=== PATIENT | male | born 1965 | race Caucasian/White ===

== ENCOUNTER 2022-02-23 07:47 | Day surgery (SDC) | payer OTHER ==
[~2022-02-23] VITALS: Ht 177.8 cm; Wt 94.3 kg
[2022-02-23] MEDS ORDERED: DIPHENHYDRAMINE INJ 50 MG/ML VIAL ONE (10:27)
[2022-02-23] MEDS ORDERED: MIDAZOLAM HCL 5 MG/5 ML VIAL ONE (10:28)
[2022-02-23] MEDS ORDERED: fentaNYL CITRATE/PF 100 MCG/2 ML AMP ONE (10:31)
[2022-02-23] MEDS ORDERED: methylPREDNISolone ACETATE 40 MG/ML ONE (12:00)
[2022-02-23] MEDS ORDERED: LIDOCAINE 2%, 20 ML MDV ONE (12:00)
[2022-02-23] MEDS ORDERED: NORMAL SALINE 10 ML VIAL ONE (12:00)
[2022-02-23] MEDS ORDERED: ISOVUE-300 (IOPAMIDOL) 100 ML INFUS..BTL IV ONE (12:00)
[2022-02-23 15:59] VITALS: BP_SYST 130
== END 2022-02-23 11:20 | disposition home or self-care (01) ==
LOC: SMU 07:47 → SDS 07:47
PROVIDERS: ATTEND Internal Medicine
DX: M51.16 Intervertebral disc disorders with radiculopathy, lumbar region (principal); M50.90 Cervical disc disorder, unspecified, unspecified cervical region; F32.A Depression, unspecified; Z98.890 Other specified postprocedural states; Z20.822 Contact with and (suspected) exposure to COVID-19
CPT/HCPCS: 36415; 62323; U0003; J1200; J2001; J1030; J2250; J3010; Q9967; 76000

== ENCOUNTER 2022-06-22 07:28 | Day surgery (SDC) | payer OTHER ==
[~2022-06-22] VITALS: Ht 177.8 cm; Wt 97.1 kg
[2022-06-22] MEDS ORDERED: NORMAL SALINE 10 ML VIAL ONE (08:45)
[2022-06-22] MEDS ORDERED: IOHEXOL 300 mgI/mL, 50 mL INFUS..BTL IV ONE (08:45)
[2022-06-22] MEDS ORDERED: methylPREDNISolone ACETATE 40 MG/ML ONE (08:45)
[2022-06-22] MEDS ORDERED: LIDOCAINE 2%, 20 ML MDV ONE (08:45)
[2022-06-22] MEDS ORDERED: fentaNYL CITRATE/PF 100 MCG/2 ML AMP ONE (08:47)
[2022-06-22] MEDS ORDERED: DIPHENHYDRAMINE INJ 50 MG/ML VIAL ONE (08:48)
[2022-06-22] MEDS: MIDAZOLAM HCL 5 MG/5 ML VIAL ONE ×2 (09:52→09:57)
[2022-06-22 16:20] VITALS: BP_SYST 136
== END 2022-06-22 10:38 | disposition home or self-care (01) ==
LOC: SDS 07:28 → SMU 07:33 → SDS 10:38
PROVIDERS: ATTEND Internal Medicine
DX: M51.16 Intervertebral disc disorders with radiculopathy, lumbar region (principal); M50.90 Cervical disc disorder, unspecified, unspecified cervical region; M51.9 Unspecified thoracic, thoracolumbar and lumbosacral intervertebral disc disorder; F32.A Depression, unspecified; Z98.890 Other specified postprocedural states
CPT/HCPCS: 62323; J1200; J2001; J1030; J2250; J3010; Q9967; 76000

== ENCOUNTER 2022-11-23 08:22 | Day surgery (SDC) | payer OTHER ==
[~2022-11-23] VITALS: Ht 177.8 cm; Wt 96.2 kg
[2022-11-23] MEDS ORDERED: fentaNYL CITRATE/PF 100 MCG/2 ML AMP ONE (08:35)
[2022-11-23] MEDS ORDERED: DIPHENHYDRAMINE INJ 50 MG/ML VIAL ONE (08:35)
[2022-11-23] MEDS: MIDAZOLAM HCL 5 MG/5 ML VIAL ONE ×2 (10:37→10:39)
[2022-11-23 13:14] VITALS: TEMP 97.7; O2SAT 96
[2022-11-23 16:51] VITALS: BP_SYST 127; PULSE 66; RESP 16
== END 2022-11-23 11:25 | disposition home or self-care (01) ==
LOC: SDS 08:22 → SMU 08:25 → SDS 11:25
PROVIDERS: ATTEND Internal Medicine
DX: M51.16 Intervertebral disc disorders with radiculopathy, lumbar region (principal); M50.90 Cervical disc disorder, unspecified, unspecified cervical region; M51.06 Intervertebral disc disorders with myelopathy, lumbar region; M51.9 Unspecified thoracic, thoracolumbar and lumbosacral intervertebral disc disorder; F32.A Depression, unspecified; Z98.890 Other specified postprocedural states; Z79.899 Other long term (current) drug therapy
CPT/HCPCS: 62323; J1200; J2250; J3010; 76000

== ENCOUNTER 2023-03-01 08:06 | Day surgery (SDC) | payer OTHER ==
[~2023-03-01] VITALS: Ht 177.8 cm; Wt 96.2 kg
[2023-03-01] MEDS ORDERED: DIPHENHYDRAMINE INJ 50 MG/ML VIAL ONE (09:17)
[2023-03-01] MEDS ORDERED: MIDAZOLAM HCL 5 MG/5 ML VIAL ONE (09:18)
[2023-03-01] MEDS ORDERED: fentaNYL CITRATE/PF 100 MCG/2 ML AMP ONE (09:18)
[2023-03-01] MEDS ORDERED: ONDANSETRON HCL 4 MG/2 ML VIAL ONE (09:18)
[2023-03-01 13:49] VITALS: O2SAT 98
[2023-03-08 10:20] VITALS: BP_SYST 159; PULSE 65; RESP 12
== END 2023-03-01 11:25 | disposition home or self-care (01) ==
LOC: SDS 08:06 → SMU 08:08 → SDS 11:25
PROVIDERS: ATTEND Internal Medicine
DX: M51.16 Intervertebral disc disorders with radiculopathy, lumbar region (principal); M51.06 Intervertebral disc disorders with myelopathy, lumbar region; M50.90 Cervical disc disorder, unspecified, unspecified cervical region; F32.A Depression, unspecified; Z98.890 Other specified postprocedural states; Z79.899 Other long term (current) drug therapy
CPT/HCPCS: 62323; J2250; J3010; 76000; J1200; J2405

== ENCOUNTER 2023-10-25 13:27 | Day surgery (SDC) | payer OTHER ==
[~2023-10-25] VITALS: Ht 177.8 cm; Wt 92.7 kg
[~2023-10-25 13:27] MED LIST: IOHEXOL 300 mgI/mL, 50 mL INFUS..BTL IV ONE; LIDOCAINE MPF 2% 20 MG/1 ML, 5 ML VIAL INH ONE; NORMAL SALINE 10 ML VIAL ONE; methylPREDNISolone ACETATE 40 MG/ML ONE
[2023-10-25] MEDS ORDERED: fentaNYL CITRATE/PF 100 MCG/2 ML AMP ONE (14:44)
[2023-10-25] MEDS ORDERED: MIDAZOLAM HCL 5 MG/5 ML VIAL ONE (14:44)
[2023-10-25] MEDS: MIDAZOLAM HCL 5 MG/5 ML VIAL IVP ONE ×2 (14:52→14:54)
[2023-10-25 15:44] VITALS: O2SAT 97
[2023-10-27 13:23] VITALS: BP_SYST 140; PULSE 63; RESP 14
== END 2023-10-25 16:00 | disposition home or self-care (01) ==
LOC: SDS 13:27 → SMU 13:29 → SDS 16:00
PROVIDERS: ATTEND Internal Medicine
DX: M51.16 Intervertebral disc disorders with radiculopathy, lumbar region (principal); I10 Essential (primary) hypertension; F32.A Depression, unspecified; Z98.890 Other specified postprocedural states; Z79.82 Long term (current) use of aspirin; Z79.899 Other long term (current) drug therapy
CPT/HCPCS: 62323; J2250; Q9967; J1010; 76000; J1030; J3010